=== PATIENT | male | born 1975 | race Asian ===

== ENCOUNTER 2016-06-10 14:22 | Emergency (ER) | payer OTHER ==
[~2016-06-10] VITALS: Ht 175.3 cm; Wt 127.0 kg
[2016-06-10 15:16] LABS: PLATELET COUNT 168 K/uL (142-355)
[2016-06-10 15:17] LABS: SODIUM 137 mmol/L (136-145)
[2016-06-10 15:35] VITALS: BP 123/69; TEMP 98.5
== END 2016-06-10 15:35 | disposition home or self-care (01) ==
LOC: ED 14:22
DX: J06.9 Acute upper respiratory infection, unspecified (principal); R07.89 Other chest pain; Z87.81 Personal history of (healed) traumatic fracture; R00.1 Bradycardia, unspecified
CPT/HCPCS: 36415; 80053; 85027; 93005; 99284